=== PATIENT | female | born 1965 | race Caucasian/White ===

== ENCOUNTER 2016-10-20 08:51 | Emergency (ER) | payer MEDICAID, OTHER ==
[~2016-10-20] VITALS: Ht 167.6 cm; Wt 90.0 kg
[~2016-10-20 08:51] MED LIST: ADDE30TA PO; ALPR0.5T99 PO; CITA20 PO; DICL75 PO; MMW SSP; PENI500T PO
[2016-10-20 08:55] VITALS: BP 136/78; PULSE 86; RESP 20; TEMP 98; O2SAT 98
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
== END 2016-10-20 11:59 | disposition home or self-care (01) ==
LOC: NEPB 08:51
DX: S09.90XA Unspecified injury of head, initial encounter (principal); R51 Headache; Z87.891 Personal history of nicotine dependence; Y04.2XXA Assault by strike against or bumped into by another person, initial encounter
CPT/HCPCS: 70450

== ENCOUNTER 2016-11-02 01:44 | Emergency (ER) | payer MEDICAID, OTHER ==
[~2016-11-02] VITALS: Ht 167.6 cm; Wt 88.0 kg
[2016-11-02 01:45] VITALS: BP 129/76; PULSE 78; RESP 16; TEMP 97.7; O2SAT 98
[2016-11-02] MEDS ORDERED: ADDE30TA PO (05:33)
[2016-11-02] MEDS ORDERED: CITA40TA4 PO (05:33)
[2016-11-02] MEDS ORDERED: ALPR.25 PO (05:33)
--- NOTE | 2016-11-02 05:37 | PD ---
HPI Chief Complaint: Psychiatric Symptoms Time Seen by Provider: 05:36 Travel History International Travel<30 days: No Contact w/Intl Traveler<30days: No Traveled to known affect area: No History of Present Illness HPI 51-year-old female with history of depression presents to the emergency department requesting a refill of her antidepressants. Patient has been off of this for over a month. She states she has been trying to get her share of cost deductible met so she does not have to pay for these medications. She states that she "finally met it" and after submitting the paperwork she will have to wait 10 more days for her medications. States that she has not been feeling right since off of her medication. States that she has had twitches and some abdominal pains. Denies any urinary symptoms. No nausea or vomiting. Denies any other recent illnesses, fever, or chills. She has no other symptoms to report. PFSH Past Medical History ADHD: Yes Anxiety: Yes Depression: Yes Diminished Hearing: No Immunizations Current: No ?: Not Menopausal: Yes Past Surgical History Surgical History: No Previous Surgery Social History Alcohol Use: Yes (OCCASIONAL- beer) Tobacco Use: No (DENIES- smokes cigs quit age 19"s) Substance Use: No Allergies-Medications (Allergen,Severity, Reaction): Coded Allergies: Percocet (Verified Allergy, Mild, SICK A DOG, 11/02/16) Lortab (Verified Allergy, Unknown, 11/02/16) Uncoded Allergies: antibotic (Allergy, Unknown, unknown reaction antibiotic- , 02/24/14) unknown name of antibiotic- tablet green in color Reported Meds & Prescriptions Reported Meds & Active Scripts Active Reported Citalopram (Citalopram Hydrobromide) 40 Mg Tab 40 Mg PO DAILY Adderall (Amphetamine-Dextroamphetamine) 30 Mg Tab 30 Mg PO BID Avoid late evening doses. Space doses at least 4 to 6 hours if more than once/day dosing. Xanax (Alprazolam) 0.25 Mg Tab 0.25 Mg PO Q6H PRN Review of Systems Except as stated in HPI: all other systems reviewed are Neg Physical Exam Narrative GENERAL: Well-nourished, well-developed female patient, ambulatory and in no acute distress SKIN: Warm and dry. HEAD: Normocephalic. EYES: No scleral icterus. No injection or drainage. NECK: Supple, trachea midline. No JVD or lymphadenopathy. CARDIOVASCULAR: Regular rate and rhythm without murmurs, gallops, or rubs. RESPIRATORY: Breath sounds equal bilaterally. No accessory muscle use. GASTROINTESTINAL: Abdomen soft, non-tender, nondistended. MUSCULOSKELETAL: No cyanosis, or edema. BACK: Nontender without obvious deformity. No CVA tenderness. Data Data Last Documented VS Vital Signs Date Time Temp Pulse Resp B/P Pulse Ox O2 Delivery O2 Flow Rate FiO2 11/02/16 01:45 97.7 78 16 129/76 98 Room Air MDM Medical Decision Making Medical Screen Exam Complete: Yes Emergency Medical Condition: Yes Medical Record Reviewed: Yes Differential Diagnosis Mood disorder versus personality disorder versus medication refill versus medication noncompliance Narrative Course 51-year-old female presents to emergency department requesting medication refills for medications that she has not been on for over a month. Patient does not want to wait 10 more days for this to be filled by her insurance company. I explained to the patient that I would not be restarting these medications because I will not be following up with her advised that she follow- up with her primary care provider. She verbalizes understanding. She agrees to return immediately with any acute worsening of symptoms. Diagnosis Primary Impression: Mood disorder Referrals: [facility] (Out patient) Primary Care Physician Patient Instructions: Depression (ED), General Instructions Additional Instructions: It is important that you follow-up to primary care provider for medication refills Seek outpatient services at [facility] Return to the emergency department immediately with any acute worsening of symptoms Med/Other Pt SpecificInfo: No Change to Meds Disposition: 01 DISCHARGE HOME Condition: Stable Nancy Croft Nov 02, 2016 05:37
== END 2016-11-02 06:04 | disposition home or self-care (01) ==
LOC: NEPB 01:44
DX: F32.9 Major depressive disorder, single episode, unspecified (principal); F90.9 Attention-deficit hyperactivity disorder, unspecified type; Z76.0 Encounter for issue of repeat prescription
CPT/HCPCS: 99281

== ENCOUNTER 2016-11-02 22:08 | Emergency (ER) | payer MEDICAID, OTHER ==
[~2016-11-02 22:08] MED LIST changes: +ALPR.25 PO; +CITA40TA4 PO
[2016-11-02 22:09] VITALS: BP 125/70; PULSE 85; RESP 18; TEMP 98.1; O2SAT 97
[2016-11-03 00:52] LABS: AUTOMATED NEUTROPHIL # 3.9 TH/MM3 (1.8-7.7); BASOPHIL # 0.1 TH/MM3 (0-0.2); EOSINOPHIL # 0.3 TH/MM3 (0-0.4); EOSINOPHIL % 3.7 % (0.0-4.0); HEMATOCRIT 36.7 % (35.0-46.0); HEMO FLAGS DIFF FINAL; LYMPH % 38.1 % (9.0-44.0); LYMPHOCYTE # 2.9 TH/MM3 (1.0-4.8); MEAN CORPUSCULAR HEMOGLOBIN 31.9 PG (27.0-34.0); MEAN CORPUSCULAR HGB CONC 34.3 % (32.0-36.0); MONO % 6.8 % (0.0-8.0); NEUT % 50.4 % (16.0-70.0); PLATELET COUNT 248 TH/MM3 (150-450); RED BLOOD COUNT 3.94 MIL/MM3 (4.00-5.30); RED CELL DISTRIBUTION WIDTH 13.8 % (11.6-17.2); WHITE BLOOD COUNT 7.6 TH/MM3 (4.0-11.0)
[2016-11-03 01:13] LABS: ALT (GPT) 21 U/L (10-53); ANION GAP 8 MEQ/L (5-15); AST (GOT) 19 U/L (15-37); BICARBONATE 25.5 MEQ/L (21.0-32.0); BLOOD UREA NITROGEN 14 MG/DL (7-18); CHLORIDE 109 MEQ/L (98-107); GLOMERULAR FILTRATION RATE 92 ML/MIN (>89); SODIUM (NA) 142 MEQ/L (136-145)
[2016-11-03 01:15] LABS: ALKALINE PHOSPHATASE 94 U/L (45-117); TOTAL BILIRUBIN ADULT 0.2 MG/DL (0.2-1.0)
--- NOTE | 2016-11-03 02:44 | PD ---
HPI Chief Complaint: Psychiatric Symptoms Time Seen by Provider: 02:44 Travel History International Travel<30 days: No Contact w/Intl Traveler<30days: No Traveled to known affect area: No History of Present Illness HPI 51-year-old female with history of anxiety and depression presents to the emergency department for psychiatric evaluation. Patient was seen and evaluated yesterday in the emergency department, requesting refill of her medications that she has not taken for over a month. She states that she has been more depressed today. She states she has had intermittent suicidal thoughts. Denies any current plan. Denies any recent illnesses, fever, or chills. Has no other symptoms to report. PFSH Past Medical History ADHD: Yes Anxiety: Yes Depression: Yes Diminished Hearing: No Immunizations Current: No Menopausal: Yes Social History Alcohol Use: Yes (OCCASIONAL- beer) Tobacco Use: No (DENIES- smokes cigs quit age 19"s) Substance Use: No Allergies-Medications (Allergen,Severity, Reaction): Coded Allergies: Percocet (Verified Allergy, Mild, SICK A DOG, 11/02/16) Lortab (Verified Allergy, Unknown, 11/02/16) Uncoded Allergies: antibotic (Allergy, Unknown, unknown reaction antibiotic- , 02/24/14) unknown name of antibiotic- tablet green in color Reported Meds & Prescriptions Reported Meds & Active Scripts Active Reported Citalopram (Citalopram Hydrobromide) 40 Mg Tab 40 Mg PO DAILY Adderall (Amphetamine-Dextroamphetamine) 30 Mg Tab 30 Mg PO BID Avoid late evening doses. Space doses at least 4 to 6 hours if more than once/day dosing. Xanax (Alprazolam) 0.25 Mg Tab 0.25 Mg PO Q6H PRN Review of Systems Except as stated in HPI: all other systems reviewed are Neg Physical Exam Narrative GENERAL: Well-nourished female patient in no acute distress SKIN: Warm and dry. HEAD: Atraumatic. Normocephalic. EYES: Pupils equal and round. No scleral icterus. No injection or drainage. ENT: No nasal bleeding or discharge. Mucous membranes pink and moist. NECK: Trachea midline. No JVD. CARDIOVASCULAR: Regular rate and rhythm. No murmur appreciated. RESPIRATORY: No accessory muscle use. Clear to auscultation. Breath sounds equal bilaterally. GASTROINTESTINAL: Abdomen soft, non-tender, nondistended. Hepatic and splenic margins not palpable. MUSCULOSKELETAL: No obvious deformities. No clubbing. No cyanosis. No edema. NEUROLOGICAL: Awake and alert. No obvious cranial nerve deficits. Motor grossly within normal limits. Normal speech. Data Data Last Documented VS Vital Signs Date Time Temp Pulse Resp B/P Pulse Ox O2 Delivery O2 Flow Rate FiO2 11/02/16 22:09 98.1 85 18 125/70 97 Room Air Orders Complete Blood Count With Diff (11/03/16 00:22) Comprehensive Metabolic Panel (11/03/16 00:22) Psych Screen (11/03/16 00:22) Labs Laboratory Tests Test 11/03/16 00:40 White Blood Count 7.6 TH/MM3 Red Blood Count 3.94 MIL/MM3 Hemoglobin 12.6 GM/DL Hematocrit 36.7 % Mean Corpuscular Volume 93.0 FL Mean Corpuscular Hemoglobin 31.9 PG Mean Corpuscular Hemoglobin 34.3 % Concent Red Cell Distribution Width 13.8 % Platelet Count 248 TH/MM3 Mean Platelet Volume 7.8 FL Neutrophils (%) (Auto) 50.4 % Lymphocytes (%) (Auto) 38.1 % Monocytes (%) (Auto) 6.8 % Eosinophils (%) (Auto) 3.7 % Basophils (%) (Auto) 1.0 % Neutrophils # (Auto) 3.9 TH/MM3 Lymphocytes # (Auto) 2.9 TH/MM3 Monocytes # (Auto) 0.5 TH/MM3 Eosinophils # (Auto) 0.3 TH/MM3 Basophils # (Auto) 0.1 TH/MM3 CBC Comment DIFF FINAL Differential Comment Sodium Level 142 MEQ/L Potassium Level 4.0 MEQ/L Chloride Level 109 MEQ/L Carbon Dioxide Level 25.5 MEQ/L Anion Gap 8 MEQ/L Blood Urea Nitrogen 14 MG/DL Creatinine 0.67 MG/DL Estimat Glomerular Filtration 92 ML/MIN Rate Random Glucose 101 MG/DL Calcium Level 8.7 MG/DL Total Bilirubin 0.2 MG/DL Aspartate Amino Transf 19 U/L (AST/SGOT) Alanine Aminotransferase 21 U/L (ALT/SGPT) Alkaline Phosphatase 94 U/L Total Protein 7.3 GM/DL Albumin 3.7 GM/DL MDM Medical Decision Making Medical Screen Exam Complete: Yes Emergency Medical Condition: Yes Medical Record Reviewed: Yes Differential Diagnosis Mood disorder versus personality disorder versus adjustment reaction disorder versus malingering Narrative Course 51-year-old female presents to the emergency department voluntarily for psychiatric evaluation. Patient appears without distress. Lab work is without acute concern. Patient is medically cleared to undergo psychiatric screening for further evaluation and disposition. Mental health screening discussed with the patient. Psychiatric screen ordered. 0454 psychiatric screen is complete. Patient is provided bus passes to [facility]. She is discharged at this time Diagnosis Primary Impression: Mood disorder Referrals: [facility] (Out patient) Patient Instructions: General Instructions Med/Other Pt SpecificInfo: No Change to Meds Disposition: 01 DISCHARGE HOME Condition: Stable Nancy Croft Nov 03, 2016 02:44
== END 2016-11-03 05:21 | disposition home or self-care (01) ==
LOC: NEPB 22:08
DX: F39 Unspecified mood [affective] disorder (principal)
CPT/HCPCS: 80053; 85025; 99283

== ENCOUNTER 2017-02-10 21:43 | Emergency (ER) | payer MEDICAID, OTHER ==
[~2017-02-10] VITALS: Ht 167.6 cm; Wt 90.0 kg
[~2017-02-10 21:43] MED LIST changes: -ALPR0.5T99 PO; -CITA20 PO; -DICL75 PO; -MMW SSP; -PENI500T PO
[2017-02-10 21:45] VITALS: BP 137/79; PULSE 94; RESP 16; TEMP 98.7; O2SAT 97
[2017-02-10] MEDS ORDERED: PENI500T PO (22:02)
--- NOTE | 2017-02-10 22:03 | PD ---
HPI Chief Complaint: ENT Complaint Time Seen by Provider: 21:59 Travel History International Travel<30 days: No Contact w/Intl Traveler<30days: No Traveled to known affect area: No History of Present Illness HPI 51-year-old female presents to the emergency department for evaluation of sore throat and right upper tooth pain that started approximately 2 days ago. No fevers. Patient denies any chest or shortness of breath. No nausea, vomiting, diarrhea. No abdominal pain. She has no chronic medical problems and takes no prescribed medications. She denies allergies to me. Patient denies any other complaints this time. PFSH Past Medical History ADHD: Yes Anxiety: Yes Depression: Yes Diminished Hearing: No Immunizations Current: No Menopausal: Yes Social History Alcohol Use: Yes (OCCASIONAL- beer) Tobacco Use: No (DENIES- smokes cigs quit age 19"s) Substance Use: Yes Allergies-Medications (Allergen,Severity, Reaction): Coded Allergies: Percocet (Verified Allergy, Mild, SICK A DOG, 02/10/17) Lortab (Verified Allergy, Unknown, 02/10/17) Uncoded Allergies: antibotic (Allergy, Unknown, unknown reaction antibiotic- , 02/24/14) unknown name of antibiotic- tablet green in color Reported Meds & Prescriptions Reported Meds & Active Scripts Active Reported Citalopram (Citalopram Hydrobromide) 40 Mg Tab 40 Mg PO DAILY Adderall (Amphetamine-Dextroamphetamine) 30 Mg Tab 30 Mg PO BID Avoid late evening doses. Space doses at least 4 to 6 hours if more than once/day dosing. Xanax (Alprazolam) 0.25 Mg Tab 0.25 Mg PO Q6H PRN Review of Systems Except as stated in HPI: all other systems reviewed are Neg Physical Exam Narrative GENERAL: Well-nourished, well-developed female patient, ambulatory. Afebrile. SKIN: Focused skin assessment warm/dry. HEAD: Normocephalic. Atraumatic. ENT: Mucosa pink and moist. No erythema or exudates. No uvular edema. No uvular , palatal, or tonsillar deviation. Airway patent. Nasal turbinates appear normal without nasal blood, purulent drainage or septal hematoma. Bilateral tympanic membranes are clear without erythema or perforation. Tooth #3 is broken. No obvious dental abscess or fluctuance. EYES: No scleral icterus. No injection or drainage. NECK: Supple, trachea midline. No JVD or lymphadenopathy. CARDIOVASCULAR: Regular rate and rhythm without murmurs, gallops, or rubs. RESPIRATORY: Breath sounds equal bilaterally. No accessory muscle use. Lungs sounds are clear to auscultation. GASTROINTESTINAL: Abdomen soft, non-tender, nondistended. MUSCULOSKELETAL: No cyanosis, or edema. Data Data Last Documented VS Vital Signs Date Time Temp Pulse Resp B/P Pulse Ox O2 Delivery O2 Flow Rate FiO2 02/10/17 21:45 98.7 94 16 137/79 97 Room Air MDM Medical Decision Making Medical Screen Exam Complete: Yes Emergency Medical Condition: Yes Medical Record Reviewed: Yes Differential Diagnosis Dentalgia versus dental abscess versus pharyngitis versus strep pharyngitis Narrative Course 51-year-old female presents to the emergency department for evaluation of sore throat and dental pain for 2 days. Patient appears well on exam. She'll be discharged with a prescription for pen VK. She'll be given her first dose in the emergency department. Patient verbalizes agreement and understanding. She is to follow-up with a dentist. The patient was discharged in stable condition with instructions, including return instructions and follow up instructions. Diagnosis Primary Impression: Toothache Referrals: Dentist call for appointment Patient Instructions: General Instructions, Toothache (ED) Additional Instructions: Take antibiotic as directed until gone. This is free at [facility]. [id number] Tylenol/ibuprofen for pain. Follow-up with a dentist. Return to the emergency department for any acute worsening of symptoms. Med/Other Pt SpecificInfo: Prescription(s) given Scripts Penicillin V Potassium 500 Mg [id number] Mg PO Q6H 7 Days Ref 0 Prov:Veronika Arteaga 02/10/17 Disposition: 01 DISCHARGE HOME Condition: Stable Veronika Arteaga February 10, 2017 22:03
[2017-02-10] MEDS ORDERED: PENICILLIN V POTASSIUM 500 MG TAB PO ONE (22:15)
== END 2017-02-10 22:57 | disposition home or self-care (01) ==
LOC: NEPD 21:43
DX: K08.89 Other specified disorders of teeth and supporting structures (principal); R07.0 Pain in throat; Z86.59 Personal history of other mental and behavioral disorders
CPT/HCPCS: 99283

== ENCOUNTER 2017-03-05 20:31 | Emergency (ER) | payer MEDICAID ==
[~2017-03-05] VITALS: Ht 167.6 cm; Wt 90.0 kg
[~2017-03-05 20:31] MED LIST changes: +PENI500T PO
[2017-03-05 20:34] VITALS: BP 137/59; PULSE 114; RESP 16; TEMP 99; O2SAT 96
--- NOTE | 2017-03-05 22:56 | PD ---
HPI . depression and LLQ pain x 1 week Chief Complaint: Psychiatric Symptoms Time Seen by Provider: 22:55 Travel History International Travel<30 days: No Contact w/Intl Traveler<30days: No Traveled to known affect area: No History of Present Illness HPI 51 year old female with history of depression here with complaints of being released from [facility] and not being giving Xanax for her depression. Patient tells me that she usually takes Xanax and uses it for depression and was only sent home with antidepressant. She also admits to left lower quadrant pain that she's been experiencing for 1 week. The pain is more so located on the left flank. She admits to constipation, but denies any other GI symptoms. She also admits to increased urinary frequency without dysuria. She rates the pain as 6/10 without any radiation. She tells me it is not reproducible, but just sits there. She has no other complaints. PFSH Past Medical History ADHD: Yes Anxiety: Yes Depression: Yes Diminished Hearing: No Immunizations Current: No Tetanus Vaccination: < 5 Years Influenza Vaccination: No ?: Not Menopausal: Yes Past Surgical History Surgical History: No Previous Surgery Social History Alcohol Use: Yes (couple beers a day) Tobacco Use: No Substance Use: No Allergies-Medications (Allergen,Severity, Reaction): Uncoded Allergies: antibotic (Allergy, Unknown, unknown reaction antibiotic- , 02/24/14) unknown name of antibiotic- tablet green in color Reported Meds & Prescriptions Reported Meds & Active Scripts Active Macrobid (Nitrofurantoin Monohydrate Macrocrystals) 100 Mg Capsule 100 Mg PO BID 7 Days Penicillin V Potassium 500 Mg Tab 500 Mg PO Q6H 7 Days Reported Citalopram (Citalopram Hydrobromide) 40 Mg Tab 40 Mg PO DAILY Adderall (Amphetamine-Dextroamphetamine) 30 Mg Tab 30 Mg PO BID Avoid late evening doses. Space doses at least 4 to 6 hours if more than once/day dosing. Xanax (Alprazolam) 0.25 Mg Tab 0.25 Mg PO Q6H PRN Review of Systems General / Constitutional: No: Fever Eyes: No: Visual changes HENT: No: Headaches Cardiovascular: No: Chest Pain or Discomfort Respiratory: No: Shortness of Breath Gastrointestinal: Positive: Abdominal Pain (LLQ/flank) Genitourinary: Positive: Frequency, Flank Pain, No: Dysuria Musculoskeletal: No: Pain Skin: No Rash Neurologic: No: Weakness Psychiatric: Positive: Depression Endocrine: No: Polydipsia Hematologic/Lymphatic: No: Easy Bruising Physical Exam Narrative GENERAL: AAO x 3, no acute distress, Well-nourished, well-developed patient. SKIN: Warm and dry. No visible rashes or bruising. HEAD: Normocephalic and atraumatic. EYES: No scleral icterus. No injection or drainage. EOM intact, PERRLA ENT: No nasal drainage noted. Mucous membranes pink. Airway patent. NECK: Supple, trachea midline. No JVD. CARDIOVASCULAR: Regular rate and rhythm without murmurs, gallops, or rubs. RESPIRATORY: Breath sounds equal bilaterally. No accessory muscle use. No rhonchi or rales. GASTROINTESTINAL: Abdomen soft, non-tender, nondistended. No rebound or guarding. Negative McBurney's point tenderness no Cedillo sign. Flank pain not elicited on examination. EXTREMITIES: No cyanosis or edema. BACK: Nontender without obvious deformity. No CVA tenderness. 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 Data Data Last Documented VS Vital Signs Date Time Temp Pulse Resp B/P Pulse Ox O2 Delivery O2 Flow Rate FiO2 03/05/17 23:06 Room Air 03/05/17 20:34 99.0 114 16 137/59 96 Orders Complete Blood Count With Diff (03/05/17 23:02) Comprehensive Metabolic Panel (03/05/17 23:02) Urinalysis - C+S If Indicated (03/05/17 23:02) Psych Screen (03/05/17 23:02) Drug Screen, Random Urine (03/05/17 23:02) Alcohol (Ethanol) (03/05/17 23:02) Salicylates (Aspirin) (03/05/17 23:02) Tylenol (Acetaminophen) (03/05/17 23:02) Urine Culture (03/05/17 23:13) Labs Laboratory Tests Test 03/05/17 03/05/17 23:13 23:21 Urine Color YELLOW Urine Turbidity CLEAR Urine pH 5.0 Urine Specific [place] 1.028 Urine Protein NEG mg/dL Urine Glucose (UA) NEG mg/dL Urine Ketones NEG mg/dL Urine Occult Blood MOD Urine Nitrite NEG Urine Bilirubin NEG Urine Urobilinogen LESS THAN 2.0 MG/DL Urine Leukocyte Esterase MOD Urine RBC 9 /hpf Urine WBC 11 /hpf Urine Squamous Epithelial <1 /hpf Cells Microscopic Urinalysis Comment CULTURE INDICATED Urine Opiates Screen NEG Urine Barbiturates Screen NEG Urine Amphetamines Screen NEG Urine Benzodiazepines Screen NEG Urine Cocaine Screen NEG Urine Cannabinoids Screen NEG White Blood Count 6.7 TH/MM3 Red Blood Count 3.85 MIL/MM3 Hemoglobin 11.9 GM/DL Hematocrit 35.1 % Mean Corpuscular Volume 91.3 FL Mean Corpuscular Hemoglobin 30.8 PG Mean Corpuscular Hemoglobin 33.7 % Concent Red Cell Distribution Width 14.6 % Platelet Count 285 TH/MM3 Mean Platelet Volume 7.8 FL Neutrophils (%) (Auto) 42.4 % Lymphocytes (%) (Auto) 47.4 % Monocytes (%) (Auto) 7.4 % Eosinophils (%) (Auto) 2.4 % Basophils (%) (Auto) 0.4 % Neutrophils # (Auto) 2.8 TH/MM3 Lymphocytes # (Auto) 3.2 TH/MM3 Monocytes # (Auto) 0.5 TH/MM3 Eosinophils # (Auto) 0.2 TH/MM3 Basophils # (Auto) 0.0 TH/MM3 CBC Comment DIFF FINAL Differential Comment Salicylates Level LESS THAN 1.7 MG/DL Sodium Level 146 MEQ/L Potassium Level 4.0 MEQ/L Chloride Level 111 MEQ/L Carbon Dioxide Level 23.5 MEQ/L Anion Gap 12 MEQ/L Blood Urea Nitrogen 14 MG/DL Creatinine 0.69 MG/DL Estimat Glomerular Filtration 89 ML/MIN Rate Random Glucose 101 MG/DL Calcium Level 7.9 MG/DL Total Bilirubin 0.3 MG/DL Aspartate Amino Transf 26 U/L (AST/SGOT) Alanine Aminotransferase 24 U/L (ALT/SGPT) Alkaline Phosphatase 77 U/L Total Protein 7.1 GM/DL Albumin 3.4 GM/DL Acetaminophen Level LESS THAN 2.0 MCG/ML Ethyl Alcohol Level 41 MG/DL [facility] Medical Decision Making Medical Screen Exam Complete: Yes Emergency Medical Condition: Yes Medical Record Reviewed: Yes Differential Diagnosis Depression, UTI, less likely nephrolithiasis, pyelonephritis, drug-seeking behavior, benzo dependence, Narrative Course 51-year-old female here with complaints of depression. She was recently discharged from [facility] tells me they did not give her her Xanax. She is also complaining of one week's worth of left lower quadrant pain, but on examination she is showing me her left flank. I have done an examination and there are no acute findings. She has a benign examination of her abdomen. I'll check a UA to rule out any type of urinary tract infection. She could also have pyelonephritis or nephrolithiasis, which I doubt. If workup is negative, patient will be cleared for psych screen. Patient appears to have UTI: I will treat with macrobid. Culture has been sent. Calcium is low, but patient is asymptomatic. Labs reviewed; Patient medically cleared for psych screen. Laboratory Tests Test 03/05/17 03/05/17 23:13 23:21 Urine Color YELLOW Urine Turbidity CLEAR Urine pH 5.0 Urine Specific Benton 1.028 Urine Protein NEG mg/dL Urine Glucose (UA) NEG mg/dL Urine Ketones NEG mg/dL Urine Occult Blood MOD Urine Nitrite NEG Urine Bilirubin NEG Urine Urobilinogen LESS THAN 2.0 MG/DL Urine Leukocyte Esterase MOD Urine RBC 9 /hpf Urine WBC 11 /hpf Urine Squamous Epithelial <1 /hpf Cells Microscopic Urinalysis Comment CULTURE INDICATED Urine Opiates Screen NEG Urine Barbiturates Screen NEG Urine Amphetamines Screen NEG Urine Benzodiazepines Screen NEG Urine Cocaine Screen NEG Urine Cannabinoids Screen NEG White Blood Count 6.7 TH/MM3 Red Blood Count 3.85 MIL/MM3 Hemoglobin 11.9 GM/DL Hematocrit 35.1 % Mean Corpuscular Volume 91.3 FL Mean Corpuscular Hemoglobin 30.8 PG Mean Corpuscular Hemoglobin 33.7 % Concent Red Cell Distribution Width 14.6 % Platelet Count 285 TH/MM3 Mean Platelet Volume 7.8 FL Neutrophils (%) (Auto) 42.4 % Lymphocytes (%) (Auto) 47.4 % Monocytes (%) (Auto) 7.4 % Eosinophils (%) (Auto) 2.4 % Basophils (%) (Auto) 0.4 % Neutrophils # (Auto) 2.8 TH/MM3 Lymphocytes # (Auto) 3.2 TH/MM3 Monocytes # (Auto) 0.5 TH/MM3 Eosinophils # (Auto) 0.2 TH/MM3 Basophils # (Auto) 0.0 TH/MM3 CBC Comment DIFF FINAL Differential Comment Salicylates Level LESS THAN 1.7 MG/DL Sodium Level 146 MEQ/L Potassium Level 4.0 MEQ/L Chloride Level 111 MEQ/L Carbon Dioxide Level 23.5 MEQ/L Anion Gap 12 MEQ/L Blood Urea Nitrogen 14 MG/DL Creatinine 0.69 MG/DL Estimat Glomerular Filtration 89 ML/MIN Rate Random Glucose 101 MG/DL Calcium Level 7.9 MG/DL Total Bilirubin 0.3 MG/DL Aspartate Amino Transf 26 U/L (AST/SGOT) Alanine Aminotransferase 24 U/L (ALT/SGPT) Alkaline Phosphatase 77 U/L Total Protein 7.1 GM/DL Albumin 3.4 GM/DL Acetaminophen Level LESS THAN 2.0 MCG/ML Ethyl Alcohol Level 41 MG/DL Diagnosis Primary Impression: Depression Qualified Code: F32.9 - Depression, unspecified depression type Additional Impression: UTI (urinary tract infection) Qualified Code: N30.01 - Acute cystitis with hematuria Scripts Nitrofurantoin Monohydrate Macrocrystals (Macrobid)100 Mg [id number] Mg PO BID 7 Days Ref 0 Prov:Jovana Fowler MD 03/05/17 Condition: Stable Lorna Jeffery Mar 05, 2017 22:56
[2017-03-05 23:36] LABS: AUTOMATED NEUTROPHIL # 2.8 TH/MM3 (1.8-7.7); BASOPHIL % 0.4 % (0.0-2.0); EOSINOPHIL # 0.2 TH/MM3 (0-0.4); EOSINOPHIL % 2.4 % (0.0-4.0); HEMATOCRIT 35.1 % (35.0-46.0); HEMO FLAGS DIFF FINAL; LYMPH % 47.4 % (9.0-44.0); LYMPHOCYTE # 3.2 TH/MM3 (1.0-4.8); MEAN CELL VOLUME 91.3 FL (80.0-100.0); MEAN CORPUSCULAR HEMOGLOBIN 30.8 PG (27.0-34.0); MEAN CORPUSCULAR HGB CONC 33.7 % (32.0-36.0); MONO % 7.4 % (0.0-8.0); NEUT % 42.4 % (16.0-70.0); PLATELET COUNT 285 TH/MM3 (150-450); RED BLOOD COUNT 3.85 MIL/MM3 (4.00-5.30); RED CELL DISTRIBUTION WIDTH 14.6 % (11.6-17.2); WHITE BLOOD COUNT 6.7 TH/MM3 (4.0-11.0)
[2017-03-05 23:41] LABS: AMPHETAMINE, URINE NEG (NEG); BARBITURATES, URINE NEG (NEG); COCAINE, URINE NEG (NEG)
[2017-03-05 23:52] LABS: BLOOD, URINE MOD (NEG); COMMENT (UR) CULTURE INDICATED; CULTURE IF INDICATED CULTURE INDICATED; GLUCOSE,URINE NEG (NEG); KETONE, URINE NEG (NEG); NITRITE,URINE NEG (NEG); SQUAMOUS EPITHELIAL CELL URINE <1 /hpf (0-5); URINE COLOR YELLOW (YELLW/STRAW)
[2017-03-05 23:54] LABS: ALKALINE PHOSPHATASE 77 U/L (45-117); TOTAL BILIRUBIN ADULT 0.3 MG/DL (0.2-1.0)
[2017-03-05] MEDS ORDERED: MACR100C2 PO (23:59)
[2017-03-06 00:06] LABS: ALT (GPT) 24 U/L (10-53); ANION GAP 12 MEQ/L (5-15); AST (GOT) 26 U/L (15-37); BICARBONATE 23.5 MEQ/L (21.0-32.0); BLOOD UREA NITROGEN 14 MG/DL (7-18); CHLORIDE 111 MEQ/L (98-107); GLOMERULAR FILTRATION RATE 89 ML/MIN (>89); SODIUM (NA) 146 MEQ/L (136-145)
[2017-03-06 00:07] LABS: ACETAMINOPHEN LESS THAN 2.0 MCG/ML (10.0-30.0)
[2017-03-06] MEDS ORDERED: ACETAMINOPHEN 325 MG TAB PO ONE (02:30)
[2017-03-06 06:30] VITALS: BP 118/70; PULSE 66; RESP 18; O2SAT 94
--- NOTE | 2017-03-06 10:33 | PD ---
History of Present Illness Chief Complaint: Psychiatric Symptoms Time Seen by Provider: 10:25 Travel History International Travel<30 Days: No Contact w/Intl Traveler<30days: No Known affected area: No Legal Status Legal Status: Voluntary History of Present Illness: History of Present Illness HPI 51 year old female with history of depression, anxiety as well as ADD who presents to [facility] after being being released from [facility] and not being giving Xanax for her depression. Patient tells me that she usually takes Xanax and uses it for depression and was only sent home with antidepressant. EMR is reviewed. Patient was last seen in ED in Oct of this year requesting refill on Xanax and Adderall as well. Current BAl is 41. She was monitored in main ed with a sitter and she did not present any behavioral concerns and no suicidality. This morning she is alert, oriented, engaging and cooperative. Speech is clear and logical and goal directed. there is no indication of any hallucinations, delusions or paranoia. During my evaluation she did not verbalize any suicidal or homicidal ideation, intent or plan. She was focused on obtaining senior care and states " I am not the homeless type. She also talks at length about getting her retroactive social security money in March but that presently she is " broke". She went to stay with her daughter but she didn't like the fact that her daughter wanted her to stay outside in a tent. She is requesting a refill on her Adderall and states " I have gained 20 lbs since I have been off of it". Patient is focused on trying to obtain assistance with senior care. PFSH Past Medical History ADHD: Yes Anxiety: Yes Depression: Yes Diminished Hearing: No Immunizations Current: No Tetanus Vaccination: < 5 Years Influenza Vaccination: No ?: Not Menopausal: Yes Past Surgical History Surgical History: No Previous Surgery Psychiatric History Psychiatric History Hx Psychiatric Treatment: ADD, DEPRESSION, ANXIETY Has been treated by Dr. THORNE as well as History of Inpatient Treatment: No Guns or firearms in home: No Social History Single female. Currently homeless Hx Alcohol Use: Yes (couple beers a day) Hx Tobacco Use: No Hx Substance Use: No Substance Use Type: Benzos (Valium,Xanax) Other Substances Used: REPORTS THAT SHE OFTEN TAKES MORE THAN PRESCIBED OF BENZOS THEY DONT WOR Hx of Substance Use Treatment: No Family Psychiatric History None Allergies-Medications (Allergen,Severity, Reaction): Uncoded Allergies: antibotic (Allergy, Unknown, unknown reaction antibiotic- , 02/24/14) unknown name of antibiotic- tablet green in color Reported Meds & Prescriptions Reported Meds & Active Scripts Active Macrobid (Nitrofurantoin Monohydrate Macrocrystals) 100 Mg Capsule 100 Mg PO BID 7 Days Penicillin V Potassium 500 Mg Tab 500 Mg PO Q6H 7 Days Reported Citalopram (Citalopram Hydrobromide) 40 Mg Tab 40 Mg PO DAILY Adderall (Amphetamine-Dextroamphetamine) 30 Mg Tab 30 Mg PO BID Avoid late evening doses. Space doses at least 4 to 6 hours if more than once/day dosing. Xanax (Alprazolam) 0.25 Mg Tab 0.25 Mg PO Q6H PRN Review of Systems Except as stated in HPI: all other systems reviewed are Neg Exam Alert: Yes Shirley: Person (ox4) Mood: Calm Affect: Appropriate Speech: Clear, Logical Eye Contact: Normal Memory Intact: Comment (no impairment) Delusions: No Suicidal: Ideation (Negative) Homicidal: Ideation (Denies any) Insight/Judgement Fair. Not impaired MDM Medical Decision Making Medical Record Reviewed: Yes Assessment/Plan 51 year old female with hx of depression, anxiety as well as ADHD who is here requesting a refill on her Adderall as well as her Xanax. She is also requesting assistance with housing issues. At this time she does not present any acute psychiatric symptomatology and does not meet criteria for hospitalization. Cleared from psychiatry for discharge. She has referrals for shelters as well as for [facility]. Orders Complete Blood Count With Diff (03/05/17 23:02) Comprehensive Metabolic Panel (03/05/17 23:02) Urinalysis - C+S If Indicated (03/05/17 23:02) Psych Screen (03/05/17 23:02) Drug Screen, Random Urine (03/05/17 23:02) Alcohol (Ethanol) (03/05/17 23:02) Salicylates (Aspirin) (03/05/17 23:02) Tylenol (Acetaminophen) (03/05/17 23:02) Urine Culture (03/05/17 23:13) Acetaminophen (Tylenol) (03/06/17 02:30) Diet Regular Basic (03/06/17 Breakfast) Results Vital Signs Date Time Temp Pulse Resp B/P Pulse Ox O2 Delivery O2 Flow Rate FiO2 03/06/17 06:30 66 18 118/70 94 Room Air 03/05/17 23:06 Room Air 03/05/17 20:34 99.0 114 16 137/59 96 Laboratory Tests Test 03/05/17 03/05/17 23:13 23:21 Urine Color YELLOW Urine Turbidity CLEAR Urine pH 5.0 Urine Specific [place] 1.028 Urine Protein NEG Urine Glucose (UA) NEG Urine Ketones NEG Urine Occult Blood MOD Urine Nitrite NEG Urine Bilirubin NEG Urine Urobilinogen LESS THAN 2.0 Urine Leukocyte Esterase MOD Urine RBC 9 Urine WBC 11 Urine Squamous Epithelial <1 Cells Microscopic Urinalysis Comment CULTURE INDICATED Urine Opiates Screen NEG Urine Barbiturates Screen NEG Urine Amphetamines Screen NEG Urine Benzodiazepines Screen NEG Urine Cocaine Screen NEG Urine Cannabinoids Screen NEG White Blood Count 6.7 Red Blood Count 3.85 Hemoglobin 11.9 Hematocrit 35.1 Mean Corpuscular Volume 91.3 Mean Corpuscular Hemoglobin 30.8 Mean Corpuscular Hemoglobin 33.7 Concent Red Cell Distribution Width 14.6 Platelet Count 285 Mean Platelet Volume 7.8 Neutrophils (%) (Auto) 42.4 Lymphocytes (%) (Auto) 47.4 Monocytes (%) (Auto) 7.4 Eosinophils (%) (Auto) 2.4 Basophils (%) (Auto) 0.4 Neutrophils # (Auto) 2.8 Lymphocytes # (Auto) 3.2 Monocytes # (Auto) 0.5 Eosinophils # (Auto) 0.2 Basophils # (Auto) 0.0 CBC Comment DIFF FINAL Differential Comment Salicylates Level LESS THAN 1.7 Sodium Level 146 Potassium Level 4.0 Chloride Level 111 Carbon Dioxide Level 23.5 Anion Gap 12 Blood Urea Nitrogen 14 Creatinine 0.69 Estimat Glomerular Filtration 89 Rate Random Glucose 101 Calcium Level 7.9 Total Bilirubin 0.3 Aspartate Amino Transf 26 (AST/SGOT) Alanine Aminotransferase 24 (ALT/SGPT) Alkaline Phosphatase 77 Total Protein 7.1 Albumin 3.4 Acetaminophen Level LESS THAN 2.0 Ethyl Alcohol Level 41 Date/Time Procedure Status Source Growth 03/05/17 23:13 Urine Culture Received Urine Clean Catch Pending Diagnosis Primary Impression: Adjustment disorder Additional Impressions: Depression UTI (urinary tract infection) Psychiatrically Cleared: Yes Departure Forms: Tests/Procedures Patient Instructions: General Instructions Med/ Other Pt Specific Info: No Change to Meds Prescriptions Nitrofurantoin Monohydrate Macrocrystals (Macrobid)100 Mg [id number] Mg PO BID 7 Days Ref 0 Prov:Jovana Fowler MD 03/05/17 Disposition: 01 DISCHARGE HOME Condition: Stable Problem Qualifiers Primary Impression: Adjustment disorder Qualified Code: F43.23 - Adjustment disorder with mixed anxiety and depressed mood Additional Impressions: Depression Qualified Code: F32.9 - Depression, unspecified depression type UTI (urinary tract infection) Qualified Code: N30.01 - Acute cystitis with hematuria Rubi Wheeler Mar 06, 2017 10:33
[2017-03-06 11:08] VITALS: BP 145/82; TEMP 98.7
[2017-03-07] MEDS ORDERED: CELE40TA PO (21:20)
== END 2017-03-06 11:11 | disposition home or self-care (01) ==
LOC: NEPD 20:31
DX: F32.9 Major depressive disorder, single episode, unspecified (principal); N39.0 Urinary tract infection, site not specified; R31.9 Hematuria, unspecified
CPT/HCPCS: 80053; 80307; 81001; 85025; 87086; 99284

== ENCOUNTER 2017-03-07 21:11 | Emergency (ER) | payer MEDICAID ==
[~2017-03-07] VITALS: Ht 167.6 cm; Wt 92.0 kg
[~2017-03-07 21:11] MED LIST changes: +MACR100C2 PO
[2017-03-07 21:13] VITALS: BP 130/89; PULSE 89; RESP 16; TEMP 99.6; O2SAT 97
[2017-03-07] MEDS ORDERED: CELE40TA PO (21:20)
[2017-03-07] MEDS ORDERED: SODIUM CHLORIDE 0.9% FLUSH 10 ML FLUSH IV FLUSH PRN (22:15)
[2017-03-07] MEDS ORDERED: KETOROLAC TROMETHAMINE 30 MG/ML (IVP) VIAL IV PUSH ONE (22:15)
[2017-03-07] MEDS ORDERED: SODIUM CHLOR 0.9% 1000 ML INJ 1,000 ML IV ONE (22:15)
--- NOTE | 2017-03-07 22:19 | PD ---
HPI Chief Complaint: Abdominal Pain Time Seen by Provider: 22:13 Travel History International Travel<30 days: No Contact w/Intl Traveler<30days: No Traveled to known affect area: No History of Present Illness HPI 51-year-old female with history of no significant past medical issues, presents to the ER today for 1 week and half history of left flank pains and left lower quadrant pains. She states that it hurts with movement and is currently measuring at an 8 out of 10. She also reports frequent urination. She denies any nausea, vomiting, fevers, or any other symptoms. Modifying Factors: None Associated Signs & Symptoms: Left flank and left lower quadrant abdominal pain Risk Factors: None PFSH Past Medical History ADHD: Yes Anxiety: Yes Depression: Yes Diminished Hearing: No Immunizations Current: No Tetanus Vaccination: < 5 Years Influenza Vaccination: No ?: Not Menopausal: Yes Past Surgical History Surgical History: No Previous Surgery Social History Alcohol Use: Yes (couple beers a day) Tobacco Use: No Substance Use: No Allergies-Medications (Allergen,Severity, Reaction): Uncoded Allergies: antibotic (Allergy, Unknown, unknown reaction antibiotic- , 02/24/14) unknown name of antibiotic- tablet green in color Reported Meds & Prescriptions Reported Meds & Active Scripts Active Macrobid (Nitrofurantoin Monohydrate Macrocrystals) 100 Mg Capsule 100 Mg PO BID 7 Days Penicillin V Potassium 500 Mg Tab 500 Mg PO Q6H 7 Days Reported Celexa (Citalopram Hydrobromide) 40 Mg Tab 40 Mg PO DAILY Review of Systems Except as stated in HPI: all other systems reviewed are Neg Physical Exam Narrative GENERAL: Well-developed middle age white female patient currently none significant distress. Awake and oriented 3. SKIN: Focused skin assessment warm/dry. HEAD: Atraumatic. Normocephalic. EYES: Pupils equal and round. No scleral icterus. No injection or drainage. ENT: No nasal bleeding or discharge. Mucous membranes pink and moist. NECK: Trachea midline. No JVD. CARDIOVASCULAR: Regular rate and rhythm. No murmur appreciated. RESPIRATORY: No accessory muscle use. Clear to auscultation. Breath sounds equal bilaterally. GASTROINTESTINAL: Abdomen soft, mild left lower quadrant tenderness without guarding or rebound, nondistended. Hepatic and splenic margins not palpable. BACK: No CVA tenderness. No rash. No point tenderness on palpation of the spine. MUSCULOSKELETAL: No obvious deformities. No clubbing. No cyanosis. No edema. NEUROLOGICAL: Awake and alert. No obvious cranial nerve deficits. Motor grossly within normal limits. Normal speech. PSYCHIATRIC: Appropriate mood and affect; insight and judgment normal. Data Data Last Documented VS Vital Signs Date Time Temp Pulse Resp B/P Pulse Ox O2 Delivery O2 Flow Rate FiO2 03/07/17 22:38 100 Room Air 03/07/17 21:58 18 03/07/17 21:13 99.6 89 130/89 Orders Urinalysis - C+S If Indicated (03/07/17 21:38) Complete Blood Count With Diff (03/07/17 22:10) Comprehensive Metabolic Panel (03/07/17 22:10) Lipase (03/07/17 22:10) Ct Abd/Pel W/O Iv Contrast (03/07/17 22:10) Iv Access Insert/Monitor (03/07/17 22:10) Ecg Monitoring (03/07/17 22:10) Oximetry (03/07/17 22:10) Sodium Chloride 0.9% Flush (Ns Flush) (03/07/17 22:15) Ketorolac Inj (Toradol Inj) (03/07/17 22:15) Sodium Chlor 0.9% 1000 Ml Inj (Ns 1000 M (03/07/17 22:15) Labs Laboratory Tests Test 03/07/17 03/07/17 22:29 23:00 White Blood Count 7.3 TH/MM3 Red Blood Count 4.08 MIL/MM3 Hemoglobin 13.0 GM/DL Hematocrit 36.4 % Mean Corpuscular Volume 89.4 FL Mean Corpuscular Hemoglobin 31.8 PG Mean Corpuscular Hemoglobin 35.6 % Concent Red Cell Distribution Width 14.3 % Platelet Count 294 TH/MM3 Mean Platelet Volume 8.3 FL Neutrophils (%) (Auto) 49.2 % Lymphocytes (%) (Auto) 39.2 % Monocytes (%) (Auto) 7.2 % Eosinophils (%) (Auto) 3.9 % Basophils (%) (Auto) 0.5 % Neutrophils # (Auto) 3.6 TH/MM3 Lymphocytes # (Auto) 2.9 TH/MM3 Monocytes # (Auto) 0.5 TH/MM3 Eosinophils # (Auto) 0.3 TH/MM3 Basophils # (Auto) 0.0 TH/MM3 CBC Comment DIFF FINAL Differential Comment Sodium Level 143 MEQ/L Potassium Level 3.5 MEQ/L Chloride Level 109 MEQ/L Carbon Dioxide Level 25.5 MEQ/L Anion Gap 9 MEQ/L Blood Urea Nitrogen 13 MG/DL Creatinine 0.83 MG/DL Estimat Glomerular Filtration 72 ML/MIN Rate Random Glucose 80 MG/DL Calcium Level 8.5 MG/DL Total Bilirubin 0.3 MG/DL Aspartate Amino Transf 15 U/L (AST/SGOT) Alanine Aminotransferase 24 U/L (ALT/SGPT) Alkaline Phosphatase 83 U/L Total Protein 7.0 GM/DL Albumin 3.5 GM/DL Lipase 367 U/L Urine Color YELLOW Urine Turbidity CLEAR Urine pH 5.5 Urine Specific Parker 1.021 Urine Protein NEG mg/dL Urine Glucose (UA) NEG mg/dL Urine Ketones NEG mg/dL Urine Occult Blood SMALL Urine Nitrite NEG Urine Bilirubin NEG Urine Urobilinogen LESS THAN 2.0 MG/DL Urine Leukocyte Esterase TRACE Urine WBC 1 /hpf Urine Squamous Epithelial <1 /hpf Cells Urine Bacteria RARE /hpf Urine Mucus FEW /lpf Microscopic Urinalysis Comment CULT NOT INDICATED MDM Medical Decision Making Medical Screen Exam Complete: Yes Emergency Medical Condition: Yes Medical Record Reviewed: Yes Interpretation(s) Laboratory Tests Test 03/07/17 03/07/17 22:29 23:00 Chloride Level 109 MEQ/L (98-107) Estimat Glomerular Filtration 72 ML/MIN (>89) Rate Urine Occult Blood SMALL (NEG) Urine Leukocyte Esterase TRACE (NEG) Urine Bacteria RARE /hpf (NONE) Urine Mucus FEW /lpf (OCC) Last 24 hours Impressions Abdomen/Pelvis CT 03/07/172209 Signed Impressions: Service Date/Time: Sunday, March 07, 2017 23:11 - CONCLUSION: Negative noncontrast CT of the abdomen and pelvis. Derek Walter MD Differential Diagnosis Left lower quadrant abdominal pain and left flank painsrenal colic versus musculoskeletal versus UTI/pyelonephritis Narrative Course Lab work did not show significant UTI although she did have some bacteria in her urine and having symptoms. CT of the abdomen pelvis is negative for any signs of acute processes. At this point, my plan would be to give her UTI treatment because of the symptoms and have her follow-up with primary care physician. Return for worsening in symptoms as needed. The plan has been discussed with her and she states understanding. Diagnosis Primary Impression: UTI (urinary tract infection) Additional Impression: Left flank pain Med/Other Pt SpecificInfo: Prescription(s) given Scripts Ciprofloxacin (Cipro)500 Mg [id number] Mg PO BID 7 Days Ref 0 Prov:Sherry Goode MD 03/08/17 Ibuprofen (Motrin Ib)200 Mg [id number] Mg PO QID PRN (PAIN SCALE 1 TO 10) #20 Prov:Sherry Goode MD 03/08/17 Disposition: 01 DISCHARGE HOME Condition: Stable Sherry Goode MD Mar 07, 2017 22:19
[2017-03-07 22:38] VITALS: O2SAT 100
[2017-03-07 22:55] LABS: AUTOMATED NEUTROPHIL # 3.6 TH/MM3 (1.8-7.7); BASOPHIL % 0.5 % (0.0-2.0); EOSINOPHIL # 0.3 TH/MM3 (0-0.4); EOSINOPHIL % 3.9 % (0.0-4.0); HEMATOCRIT 36.4 % (35.0-46.0); HEMO FLAGS DIFF FINAL; LYMPH % 39.2 % (9.0-44.0); LYMPHOCYTE # 2.9 TH/MM3 (1.0-4.8); MEAN CELL VOLUME 89.4 FL (80.0-100.0); MEAN CORPUSCULAR HEMOGLOBIN 31.8 PG (27.0-34.0); MEAN CORPUSCULAR HGB CONC 35.6 % (32.0-36.0); MONO % 7.2 % (0.0-8.0); NEUT % 49.2 % (16.0-70.0); PLATELET COUNT 294 TH/MM3 (150-450); RED BLOOD COUNT 4.08 MIL/MM3 (4.00-5.30); RED CELL DISTRIBUTION WIDTH 14.3 % (11.6-17.2); WHITE BLOOD COUNT 7.3 TH/MM3 (4.0-11.0)
[2017-03-07 23:13] LABS: ALT (GPT) 24 U/L (10-53); ANION GAP 9 MEQ/L (5-15); AST (GOT) 15 U/L (15-37); BICARBONATE 25.5 MEQ/L (21.0-32.0); BLOOD UREA NITROGEN 13 MG/DL (7-18); CHLORIDE 109 MEQ/L (98-107); GLOMERULAR FILTRATION RATE 72 ML/MIN (>89); POTASSIUM 3.5 MEQ/L (3.5-5.1); SODIUM (NA) 143 MEQ/L (136-145)
[2017-03-07 23:15] LABS: ALKALINE PHOSPHATASE 83 U/L (45-117); TOTAL BILIRUBIN ADULT 0.3 MG/DL (0.2-1.0)
--- NOTE | 2017-03-07 23:33 | RADRPT ---
EXAM DATE/TIME: 03/07/2017 23:11 [place] COMPARISON: No previous studies available for comparison. INDICATIONS : Left flank pain. Evaluate for calculi. ORAL CONTRAST: No oral contrast ingested. RADIATION DOSE: 8.46 CTDIvol (mGy) MEDICAL HISTORY : None SURGICAL HISTORY : None. ENCOUNTER: Initial ACUITY: 1 week PAIN SCALE: 10/10 LOCATION: Left flank TECHNIQUE: Volumetric scanning of the abdomen and pelvis was performed. Using automated exposure control and ad justment of the mA and/or kV according to patient size, radiation dose was kept as low as reasonably achievable to obtain optimal diagnostic quality images. FINDINGS: LOWER LUNGS: The visualized lower lungs are clear. LIVER: Homogeneous density without lesion. There is no dilation of the biliary tree. No calcified gallston es. SPLEEN: Normal size without lesion. PANCREAS: Within normal limits. KIDNEYS: Normal in size and shape. There is no mass, stone, or hydronephrosis. ADRENAL GLANDS: Within normal limits. VASCULAR: There is no aortic aneurysm. BOWEL/MESENTERY: The stomach, small bowel, and colon demonstrate no acute abnormality. There is no free intraperitone al air or fluid. ABDOMINAL WALL: Within normal limits. RETROPERITONEUM: There is no lymphadenopathy. BLADDER: No wall thickening or mass. REPRODUCTIVE: Within normal limits. INGUINAL: There is no lymphadenopathy or hernia. MUSCULOSKELETAL: Within normal limits for patient age. CONCLUSION: Negative noncontrast CT of the abdomen and pelvis. Derek Walter MD on March 07, 2017 at 23:31 Board Certified Radiologist. This report was verified electronically.
[2017-03-08 00:26] LABS: BACTERIA, URINE RARE /hpf; BLOOD, URINE SMALL (NEG); COMMENT (UR) CULT NOT INDICATED; CULTURE IF INDICATED CULT NOT INDICATED; GLUCOSE,URINE NEG (NEG); KETONE, URINE NEG (NEG); MUCUS URINE FEW /lpf (OCC); NITRITE,URINE NEG (NEG); PH, URINE 5.5 (5.0-8.5); SQUAMOUS EPITHELIAL CELL URINE <1 /hpf (0-5); URINE COLOR YELLOW (YELLW/STRAW)
[2017-03-08] MEDS ORDERED: CIPR-9 PO (00:36)
[2017-03-08] MEDS ORDERED: IBUP-1129 PO (00:36)
[2017-03-08 02:09] VITALS: BP 122/84
== END 2017-03-08 02:10 | disposition home or self-care (01) ==
LOC: NEPE 21:11
DX: N39.0 Urinary tract infection, site not specified (principal); R10.32 Left lower quadrant pain; F41.9 Anxiety disorder, unspecified; F32.9 Major depressive disorder, single episode, unspecified; Z79.899 Other long term (current) drug therapy; Z88.1 Allergy status to other antibiotic agents
CPT/HCPCS: 74176; 80053; 81001; 83690; 85025; 96374; 99285; J1885; J7030

== ENCOUNTER 2017-06-22 11:22 | Emergency (ER) | payer MEDICAID ==
[~2017-06-22] VITALS: Ht 167.6 cm; Wt 100.0 kg
[~2017-06-22 11:22] MED LIST changes: -ADDE30TA PO; -ALPR.25 PO; +CELE40TA PO; +CIPR-9 PO; -CITA40TA4 PO; +IBUP-1129 PO
[2017-06-22 11:24] VITALS: BP 151/96; PULSE 114; RESP 16; TEMP 98.6; O2SAT 98
[2017-06-22] MEDS ORDERED: IBUP-232 PO (12:09)
[2017-06-22] MEDS ORDERED: PENI500T PO (12:09)
[2017-06-22] MEDS ORDERED: MAPA500T13 PO (12:09)
[2017-06-22] MEDS ORDERED: MAGICADU2 SWISH-SPIT (12:09)
[2017-06-22] MEDS ORDERED: PENICILLIN V POTASSIUM 500 MG TAB PO ONE (12:15)
--- NOTE | 2017-06-22 12:19 | PD ---
HPI Chief Complaint: Oral / Dental Pain or Problem Time Seen by Provider: 11:46 Travel History International Travel<30 days: No Contact w/Intl Traveler<30days: No Traveled to known affect area: No History of Present Illness HPI 52-year-old female presents 1 Department with worsening pain, swelling , and the right upper jaw line. Patient states she's had difficulty in this area past several days. Patient has history of broken teeth and severe caries to multiple teeth. Currently her pain is centered over the #2 and #3 tooth with swelling into the right maxillary jaw. Patient states she's been taking [id number] pain medication without significant improvement. Patient has no difficulty swallowing denies fever or chills. Pain is currently an 8/10. She has sensitivity to cold. Patient has no local dentist. Patient is not allergic to penicillin. PFSH Past Medical History ADHD: Yes Anxiety: Yes Depression: Yes Diminished Hearing: No Immunizations Current: No ?: Not Menopausal: Yes Social History Alcohol Use: Yes (couple beers a day) Tobacco Use: No Substance Use: No Allergies-Medications (Allergen,Severity, Reaction): Uncoded Allergies: antibotic (Allergy, Unknown, unknown reaction antibiotic- , 02/24/14) unknown name of antibiotic- tablet green in color Reported Meds & Prescriptions Reported Meds & Active Scripts Active Magic Mouthwash Adult Liq (Multi-Ingredient Mouthwash/Gargle) 120 Ml Susp 10 Ml SWISH-SPIT Q2HR Each 5mL contains: Nystatin 200,000units, Diphenhydramine 4.25mg, Viscous Lidocaine 10mg, Hancock syrup 0.8 mL Mapap Extra Strength (Acetaminophen) 500 Mg Tab 1,000 Mg PO Q6HR PRN Ibuprofen 600 Mg Tab 600 Mg PO Q6H PRN Penicillin V Potassium 500 Mg Tab 500 Mg PO Q6H 10 Days Cipro (Ciprofloxacin HCl) 500 Mg Tab 500 Mg PO BID 7 Days Motrin Ib (Ibuprofen) 200 Mg Tablet 600 Mg PO QID PRN Macrobid (Nitrofurantoin Monohydrate Macrocrystals) 100 Mg Capsule 100 Mg PO BID 7 Days Penicillin V Potassium 500 Mg Tab 500 Mg PO Q6H 7 Days Reported Celexa (Citalopram Hydrobromide) 40 Mg Tab 40 Mg PO DAILY Review of Systems Except as stated in HPI: all other systems reviewed are Neg General / Constitutional: No: Fever Eyes: No: Visual changes HENT: Positive: Dental Difficulties, No: Headaches, Sore Throat, Rhinitis, Rhinorrhea, Congestion, Nosebleed, Neck Stiffness, Neck Pain, Gingival Bleeding , Ear Discharge, Earache Cardiovascular: No: Chest Pain or Discomfort Respiratory: No: Shortness of Breath Gastrointestinal: No: Abdominal Pain Genitourinary: No: Dysuria Musculoskeletal: No: Pain Skin: No Rash Neurologic: No: Weakness Psychiatric: No: Depression Endocrine: No: Polydipsia Hematologic/Lymphatic: No: Easy Bruising Physical Exam Narrative GENERAL: Patient appears distress. SKIN: Warm and dry. Normal color. Normal turgor. HEAD: Atraumatic. Normocephalic. Patient has swelling over the right maxillary region with tenderness with palpation. EYES: Pupils equal and round. No scleral icterus. No injection or drainage. ENT: No nasal bleeding or discharge. Mucous membranes pink and moist. She has very poor dental health with multiple broken teeth and caries noted. No obvious drainable abscesses noted in the right upper gumline. Pharynx is clear. Airway is patent. TMs are clear bilaterally. NECK: Trachea midline. Supple nontender without signs of Nawaf's angina. CARDIOVASCULAR: Regular rate and rhythm. RESPIRATORY: No accessory muscle use. Clear to auscultation. Breath sounds equal bilaterally. MUSCULOSKELETAL: Extremities without clubbing, cyanosis, or edema. No obvious deformities. NEUROLOGICAL: Awake and alert. No obvious cranial nerve deficits. Motor grossly within normal limits. Five out of 5 muscle strength in the arms and legs. Normal speech. PSYCHIATRIC: Appropriate mood and affect; insight and judgment normal. Data Data Last Documented VS Vital Signs Date Time Temp Pulse Resp B/P (MAP) Pulse Ox O2 Delivery O2 Flow Rate FiO2 06/22/17 11:24 98.6 114 16 151/96 [phone]) 98 Orders Orders Penicillin V Potassium (Veetids) (06/22/17 12:15) [facility] Medical Decision Making Medical Screen Exam Complete: Yes Emergency Medical Condition: Yes Differential Diagnosis Dental pain. Dental caries. Dental abscess. Narrative Course Patient is given her first dose of penicillin 500 mg by mouth. Patient continued on Pen-Vee K 500 mg 4 times a day 10 days. Patient given ibuprofen 600 mg 4 times a day #40. Patient given acetaminophen 500 mg 2 tabs every 6 hours when necessary #60. Patient is given Magic mouthwash to be used every 2 hours as discussed as needed for pain. 120 mL's with 2 refills. Patient is to arrange dental follow-up through her insurance as soon as possible. Patient can return with worsening symptoms if necessary. Diagnosis Primary Impression: Dental abscess Referrals: Dentist Patient Instructions: General Instructions Additional Instructions: Patient is given her first dose of penicillin 500 mg by mouth. Patient continued on Pen-Vee K 500 mg 4 times a day 10 days. Patient given ibuprofen 600 mg 4 times a day #40. Patient given acetaminophen 500 mg 2 tabs every 6 hours when necessary #60. Patient is given Magic mouthwash to be used every 2 hours as discussed as needed for pain. 120 mL's with 2 refills. Patient is to arrange dental follow-up through her insurance as soon as possible. Patient can return with worsening symptoms if necessary. Med/Other Pt SpecificInfo: Prescription(s) given Scripts Kfdvaivo-Liffnzpemjphroo-Vxtgsfpbp Liq (Magic Mouthwash Adult Liq) 120 Ml Susp 10 ML SWISH-SPIT Q2HR for Mouth sores, #120 ML 2 Refills Each 5mL contains: Nystatin 200,000units, Diphenhydramine 4.25mg, Viscous Lidocaine 10mg, Hancock syrup 0.8 mL Prov: Jeff Avendano MD 06/22/17 Acetaminophen (Mapap Extra Strength) 500 Mg Tab 1000 MG PO Q6HR Y for PAIN, #60 TAB 0 Refills Prov: Jeff Avendano MD 06/22/17 Ibuprofen (Ibuprofen) 600 Mg Tab 600 MG PO Q6H Y for Pain/Inflammation, #40 TAB 0 Refills Prov: Jeff Avendano MD 06/22/17 Penicillin V Potassium (Penicillin V Potassium) 500 Mg Tab 500 MG PO Q6H for Infection for 10 Days, #40 TAB 0 Refills Prov: Jeff Avendano MD 06/22/17 Disposition: 01 DISCHARGE HOME Condition: Stable Talon Bolanos Jun 22, 2017 12:19
[2017-06-23] MEDS ORDERED: TRAM50TA PO (14:07)
[2017-06-23] MEDS ORDERED: ROBA750T PO (20:08)
== END 2017-06-22 12:49 | disposition home or self-care (01) ==
LOC: NEPK 11:22
DX: K04.7 Periapical abscess without sinus (principal); Z86.59 Personal history of other mental and behavioral disorders
CPT/HCPCS: 99284

== ENCOUNTER 2017-06-23 13:04 | Emergency (ER) | payer MEDICAID ==
[~2017-06-23] VITALS: Ht 167.6 cm; Wt 103.0 kg
[~2017-06-23 13:04] MED LIST changes: +IBUP-232 PO; +MAGICADU2 SWISH-SPIT; +MAPA500T13 PO
[2017-06-23 13:15] VITALS: BP 139/85; PULSE 87; RESP 18; TEMP 97.7; O2SAT 97
--- NOTE | 2017-06-23 14:04 | PD ---
HPI Chief Complaint: Oral / Dental Pain or Problem Time Seen by Provider: 13:40 Travel History International Travel<30 days: No Contact w/Intl Traveler<30days: No Traveled to known affect area: No History of Present Illness HPI 52 y/f with pain in her upper jaw for 2 days. She says she came to the emergency department yesterday and was prescribed antibiotics for a dental abscess, however, her pain and increased and her face has become more swollen. She describes the pain as moderate and tylenol and motrin do not relieve her pain. Pain is non radiating and located in the right upper region of her mouth and has tenderness along maxillary sinus. Denies exudate. She is able to eat and drink normally. Denies fever, chills, chest pain, shortness of breath. PFSH Past Medical History ADHD: Yes Anxiety: Yes Depression: Yes Diminished Hearing: No Immunizations Current: No Influenza Vaccination: No ?: Not Menopausal: Yes Social History Alcohol Use: Yes (couple beers a day) Tobacco Use: No Substance Use: No Allergies-Medications (Allergen,Severity, Reaction): Coded Allergies: No Known Allergies (Unverified , 06/23/17) Reported Meds & Prescriptions Reported Meds & Active Scripts Active Tramadol (Tramadol HCl) 50 Mg Tab 50 Mg PO Q8H PRN 5 Days Magic Mouthwash Adult Liq (Multi-Ingredient Mouthwash/Gargle) 120 Ml Susp 10 Ml SWISH-SPIT Q2HR Each 5mL contains: Nystatin 200,000units, Diphenhydramine 4.25mg, Viscous Lidocaine 10mg, Hancock syrup 0.8 mL Mapap Extra Strength (Acetaminophen) 500 Mg Tab 1,000 Mg PO Q6HR PRN Ibuprofen 600 Mg Tab 600 Mg PO Q6H PRN Penicillin V Potassium 500 Mg Tab 500 Mg PO Q6H 10 Days Reported Celexa (Citalopram Hydrobromide) 40 Mg Tab 40 Mg PO DAILY Review of Systems Except as stated in HPI: all other systems reviewed are Neg Physical Exam Narrative GENERAL: Well-nourished, well-developed patient. SKIN: Focused skin assessment warm/dry. HEAD: Normocephalic. MOUTH: Mucous membranes moist, no lesions, right upper jaw with slight edema and TTP. poor dentition. Right cheek with edema & TTP. No lymphangitic Spread EYES: No scleral icterus. No injection or drainage. NECK: Supple, trachea midline. No JVD or lymphadenopathy. CARDIOVASCULAR: Regular rate and rhythm without murmurs, gallops, or rubs. RESPIRATORY: Breath sounds equal bilaterally. No accessory muscle use. MUSCULOSKELETAL: No cyanosis, or edema. BACK: Nontender without obvious deformity. Data Data Last Documented VS Vital Signs Date Time Temp Pulse Resp B/P (MAP) Pulse Ox O2 Delivery O2 Flow Rate FiO2 06/23/17 13:15 97.7 87 18 139/85 (103) 97 MDM Medical Decision Making Medical Screen Exam Complete: Yes Emergency Medical Condition: Yes Differential Diagnosis right upper molar Abscess versus odontalgia versus sialitis Narrative Course 52-year-old female here for tooth pain and increased swelling. She was evaluated yesterday and given Pen-Vee K for her infection. States she has not been to a dentist. She states that she is in lot of pain and would like something for pain as Tylenol and Motrin have not been able to relieve her pain. Advised her to Take all antibiotics as prescribed and follow up with a dentist Strongly advised her to use caution when taking pain medications. Advised her when to return to the emergency department symptoms worsens or persists Patient agreed to plan. Diagnosis Primary Impression: Odontalgia Referrals: Dentist Primary Care Physician Additional Instructions: Continue antibiotics as prescribed. If symptoms worsen or persists return to the emergency department further treatment and evaluation. Use pain medication sparingly and with caution. Follow-up with dentist and Primary Care Physician for further treatment and evaluation Scripts Tramadol (Tramadol) 50 Mg Tab 50 MG PO Q8H Y for PAIN for 5 Days, #15 TAB 0 Refills Prov: Jovana Fowler MD 06/23/17 Disposition: 01 DISCHARGE HOME Condition: Stable Rosi Rai Jun 23, 2017 14:04
[2017-06-23] MEDS ORDERED: TRAM50TA PO (14:07)
[2017-06-23] MEDS ORDERED: ROBA750T PO (20:08)
== END 2017-06-23 14:26 | disposition home or self-care (01) ==
LOC: PHED 13:04 → PHEFT 14:26
DX: K08.89 Other specified disorders of teeth and supporting structures (principal)
CPT/HCPCS: 99283